=== PATIENT | female | born 1995 | race Caucasian/White ===

== ENCOUNTER 2018-10-23 15:13 | Emergency (ER) | payer MEDICAID ==
[~2018-10-23] VITALS: Ht 157.5 cm; Wt 85.3 kg
[2018-10-23 15:20] VITALS: BP_SYST 141
[2018-10-23] MEDS ORDERED: DEXAMETHASONE SOD PHOSPHATE 10 MG/ML VIAL IM ONE (16:30)
[2018-10-23] MEDS ORDERED: KETOROLAC TROMETHAMINE 60 MG/2 ML VIAL IM ONE (16:30)
[2018-10-23] MEDS ORDERED: PENICILLIN G BENZATHINE 1.2 MMU/2 ML SYR IM ONE (16:45)
[2018-10-23 17:05] VITALS: BP_SYST 139
== END 2018-10-23 17:05 | disposition home or self-care (01) ==
LOC: SED 15:13
DX: J02.9 Acute pharyngitis, unspecified (principal); R03.0 Elevated blood-pressure reading, without diagnosis of hypertension; M19.90 Unspecified osteoarthritis, unspecified site
CPT/HCPCS: 36415; 81025; 86403; 87081; 96372; 99283; J0561; J1100; J1885

== ENCOUNTER 2018-11-17 18:18 | Emergency (ER) | payer MEDICAID ==
[~2018-11-17] VITALS: Ht 157.5 cm; Wt 82.1 kg
[2018-11-17 18:18] VITALS: BP_SYST 125
[2018-11-17] MEDS ORDERED: MAG HYDROX/AL HYDROX/SIMETH 30 ML, LIDOCAINE VISCOUS 2% 15ML (PO) 10 ML, BELLADONNA ALK... PO ONE ×3 (18:45)
[2018-11-17 19:33] VITALS: BP_SYST 124
[2018-11-17 20:11] LABS: BLOOD, URINE NEGATIVE (NEGATIVE); CLARITY/URINE HAZY (CLEAR); COLOR,URINE YELLOW (YELLOW); GLUCOSE,URINE NEGATIVE (NEGATIVE); KETONES,URINE TRACE (NEGATIVE); LEUKOCYTE ESTERASE ,URINE TRACE (NEGATIVE); NITRITE, URINE NEGATIVE (NEGATIVE); PH,URINE >=9.0 (5.0-8.0); PROTEIN URINE 2+ (NEGATIVE)
[2018-11-17 20:18] LABS: BILIRUBIN,URINE NEGATIVE (NEGATIVE)
[2018-11-17 20:23] LABS: RBC,URINE NONE SEEN /HPF (0-3)
[2018-11-17 20:24] LABS: BACTERIA,URINE None Seen /HPF (None Seen); MUCUS,URINE 1+ /LPF (None Seen)
== END 2018-11-17 19:36 | disposition home or self-care (01) ==
LOC: SED 18:18
DX: K21.9 Gastro-esophageal reflux disease without esophagitis (principal); N39.0 Urinary tract infection, site not specified; R03.0 Elevated blood-pressure reading, without diagnosis of hypertension; M19.90 Unspecified osteoarthritis, unspecified site
CPT/HCPCS: 81000; 81025; 87086; 99283; J2001